=== PATIENT | male | born 1990 | race Caucasian/White ===

== ENCOUNTER → 2021-07-20 | Outpatient (CLI) | payer OTHER ==
--- NOTE | 2021-07-20 11:13 | REP ---
INDICATION: LOW BACK PAIN. COMPARISON: None TECHNIQUE: AP and lateral views FINDINGS: The disc spaces are symmetric and well maintained throughout. Vertebral body height and alignment is within normal limits. The pedicles are intact bilaterally. IMPRESSION: Within normal limits <Electronically signed by Gabriel Morgan > 07/20/21 [id number]
--- NOTE | 2021-07-20 11:16 | REP ---
INDICATION: OTHER INTERNAL DERANGEMENTS OF LEFT KNEE COMPARISON: None. TECHNIQUE: AP, lateral, bilateral oblique and sunrise views. FINDINGS: The osseous structures and joint spaces are intact and normal. There is no evidence for acute fracture or dislocation. No joint effusion is appreciated. Surrounding soft tissues are unremarkable. No subcutaneous emphysema or radiodense foreign body. IMPRESSION: Normal age-appropriate left knee examination. <Electronically signed by Oscar Rose > 07/20/21 [id number]
== END ==
LOC: M WUC 10:33
PROVIDERS: ATTEND Physician Assistant
DX: M23.8X2 Other internal derangements of left knee (principal); M54.50 Low back pain, unspecified